=== PATIENT | male | born 1975 | race Caucasian/White ===

== ENCOUNTER 2017-08-07 18:05 | Emergency (ER) | END 2017-08-07 22:30 | disposition home or self-care (01) ==

== ENCOUNTER 2017-11-26 22:01 | Emergency (ER) | END 2017-11-27 01:59 | disposition home or self-care (01) ==

== ENCOUNTER 2017-12-06 10:59 | Emergency (ER) | END 2017-12-06 12:10 | disposition home or self-care (01) ==